=== PATIENT | male | born 1985 | race African-American/Black ===

== ENCOUNTER 2019-07-21 05:08 | Observation (INO) | payer SELFPAY ==
[2019-07-21] VITALS (9 sets, daily range): BP systolic 111–152; BP diastolic 70–95; PULSE 87–232; RESP 19–33; TEMP 36.7–37; O2SAT 87–100
--- NOTE | ~2019-07-21 | XR_ITS ---
XR chest 1V portable 07/21/2019 05:31 Indication: Chest pain and shortness of breath. Cocaine use. Procedure: AP portable chest Comparison: No prior studies for comparison. Findings: Heart size normal. Extensive bilateral airspace disease, most likely edema. Pneumonia less favored. No pleural effusion or pneumothorax. Impression: 1: Diffuse bilateral airspace disease, most likely pulmonary edema. Pneumonia less favored. Reviewed, dictated and finalized at location A. Impression: 1: Diffuse bilateral airspace disease, most likely pulmonary edema. Pneumonia l ess favored.
--- NOTE | 2019-07-21 05:10 | ECG_ITS ---
Measurements Intervals [place] Rate: 102 P: 63 [place]: 155 QRS: 55 QRSD: 97 T: 58 QT: 313 QTc: 409 Interpretive Statements SINUS TACHYCARDIA POSSIBLE LEFT ATRIAL ENLARGEMENT PEAKED T WAVES- CONSIDER HYPERKALEMIA OR ISCHEMIA BASELINE WANDER- I, II, III, AVR, AVL, AVF, V1 ABNORMAL ECG Electronically Signed On 07-21-2019 7:32:27 CDT by Paul Balderrama D.O.
--- NOTE | 2019-07-21 05:13 | PC.NURSE ---
EDP IN ROOM AT THIS TIME. PT GIVEN 6MG OF ADENOSINE AT THIS TIME.
--- NOTE | 2019-07-21 05:14 | PC.NURSE ---
NO CHANGE WITH 6MG OF ADENOSINE. EDP ORDERED 12MG OF ADENOSINE AT THIS TIME.
--- NOTE | 2019-07-21 05:18 | PC.NURSE ---
PT HEART RATE TO 124 BPM AFTER 12MG OF ADENOSINE.
--- NOTE | 2019-07-21 05:20 | PC.NURSE ---
UNABLE TO GET BLOOD PRESSURE ON PATIENT DUE TO HIM BEING UNCOOPERATIVE. PT PLACED ON 15 L NON REBREATHER AT THIS TIME. PER EDP ORDERS.
[2019-07-21 05:22] LABS: Basophils Percent Auto 0.4 % (0.2-1.2); Eosinophils Percent Auto 0.5 % (0-4.4); Hematocrit 51.2 % (42.0-52.0); Immature Granulocyte Absolute 0.02 K/mm3 (0.00-0.031); Immature Granulocyte Percent A 0.2 % (0-0.5); Lymphocytes Percent Auto 21.1 % (18.3-44.2); Mean Corpuscular HGB Conc 35.2 g/dl (32-36); Mean Corpuscular Hemoglobin 34.4 pg (26-34); Mean Corpuscular Volume 97.7 fl (80-100); Mean Platelet Volume 8.4 fl (7.4-10.4); Monocytes Absolute Auto 0.3 K/mm3 (0.1-0.6); Monocytes Percent Auto 4.1 % (2.6-8.5); Neutrophils Percent Auto 73.7 % (45.5-73.1); Platelet Count Result 426 k/mm3 (150-375); Red Blood Count 5.24 M/mm3 (4.6-6.20); Red Cell Distribution Width 11.6 % (11.5-14.5); White Blood Count 8.1 K/mm3 (4.5-10.0)
[2019-07-21] MEDS: ADENOSINE IV SOLN 6 MG/2 ML VIAL 12 MG IV PUSH (05:22)
[2019-07-21] MEDS: ADENOSINE IV SOLN 6 MG/2 ML VIAL IV PUSH (05:22)
--- NOTE | 2019-07-21 05:25 | ECG_ITS ---
Measurements Intervals [place] Rate: 232 P: MD: 0 QRS: 58 QRSD: 210 T: -52 QT: 287 QTc: 565 Interpretive Statements SUPRAVENTRICULAR TACHYCARDIA CANNOT RULE OUT SEPTAL INFARCT, AGE INDETERMINATE ST-T WAVE ABNORMALITY IN DIFFUSE LEADS- CONSIDER ISCHEMIA OR RATE RELATED BASELINE WANDER- I, II, AVL, V1-V3 ABNORMAL ECG Electronically Signed On 07-21-2019 13:19:15 CDT by Paul Balderrama D.O.
[2019-07-21] MEDS: FUROSEMIDE INJ 40 MG/4 ML VIAL IV PUSH (05:27)
[2019-07-21 05:31] LABS: Prothrombin Time 12.6 Seconds (11.1-14.7)
--- NOTE | 2019-07-21 05:31 | PC.NURSE ---
PT PLACED ON BI-PAP AT THIS TIME.
[2019-07-21 05:32] LABS: Partial Thromboplastin Time 28.2 SECONDS (22.3-36.8)
[2019-07-21 05:34] LABS: Ethanol 110 mg/dL (<10)
[2019-07-21] MEDS: ONDANSETRON INJ 4 MG/2 ML VIAL IV PUSH (05:34)
--- NOTE | 2019-07-21 05:35 | ED.GENADULT ---
HPI - General Adult General Chief complaint: Unspecified Stated complaint: CP/ SOB/ COCAINE USE Source: RN notes reviewed History of Present Illness HPI narrative: Patient presents emergency department from home for cocaine ingestion. Patient states that this evening he used cocaine for the first time at approximately midnight. He states he was also drinking this evening states he began to have feelings of his heart racing and shortness of breath and called EMS. Patient presents with rapid heart rate in the 230s also with oxygen saturations in the 80s when on room air. Patient denies any fevers or chills chest pain abdominal pain or any other symptoms denies any other drug use this evening. 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 He states he was feeling fine earlier in the day. States he was at his girlfriend's house and was walking out of his car when he began to feel the shortness of breath and heart racing. Related Data Allergies Allergy/AdvReac Type Severity Reaction Status Date / Time No Known Allergies Allergy Verified 07/21/19 05:40 Review of Systems Review of Systems: Narrative: Gen.: Denies fevers or chills ENT: Denies congestion Respiratory: Reports shortness of breath CV: See HPI GI: Denies abdominal pain nausea, emesis or diarrhea Musculoskeletal: Denies back pain or muscle pain Neuro: Denies numbness, tingling, weakness or focal weakness Skin: Denies rash Except as documented, all other systems reviewed and negative [facility] Past Medical History Medical History (Updated 07/21/19 @ 06:41 by Donny Boothe DO) Hypertension Social History Social History Gender identity (if verbalized by the patient): Male Exam Narrative: Exam Narrative: APPEARANCE: Moderate respiratory distress nontoxic, resting in bed EYES: EOMI HEENT: Normocephalic, atraumatic, OMM RESPIRATORY: Mild respiratory distress sitting upright speaking in short phrases crackles throughout the bilateral lung rios CARDIOVASCULAR: Tachycardic and regular without murmurs rubs or gallops. ABDOMINAL: Soft, nontender, nondistended, no rebound or guarding MUSCULOSKELETAl: Moves all extremities. No clubbing, cyanosis or edema. NEURO: Awake and alert x 3. Following commands, speech normal, no focal deficits SKIN:: Warm, dry. No rashes lesions or abrasions PSYCHIATRIC: Normal affect/mood, Course Course Emergency Course: Following cardioversion chest x-ray showing pulmonary edema patient was initially going to be placed on a BiPAP but had a episode of emesis Zofran was given and secondary to this we will hold on BiPAP and continue on nonrebreather which the patient is tolerating Patient's breathing is improved resting in bed able to speak in full sentences currently ANO x3 we will continue to wean oxygen as tolerated Discussed with Dr. Obrien presentation work-up. Agrees with consult at this time With Dr. Manriquez presentation and work-up. Agrees with admission to the ICU Discussed with ARLETH Ovalle for Dr. Taylor presentation work-up. Agrees with admission Discussed with patient and family results of workup and diagnosis. Discussed need for admission. Patient and family understand and agree to current treatment plan Patient will be weaned down to Ventimask from nonrebreather Vital Signs Vital signs: Vital Signs Temperature 98.6 F 07/21/19 05:04 Pulse Rate 232 H 07/21/19 05:04 Respiratory Rate 30 H 07/21/19 05:04 Pulse Oximetry 87 L 07/21/19 05:04 Temperature 98.2 F 07/21/19 06:54 Pulse Rate 97 07/21/19 06:54 Respiratory Rate 19 07/21/19 06:54 Blood Pressure 114/83 07/21/19 06:54 Pulse Oximetry 100 07/21/19 06:54 Procedures Other Procedure Procedure 1: Other Procedure: Chemical cardioversion: Patient was placed on nurse monitoring code cart was in room IV established and placed on oxy
--- NOTE | 2019-07-21 05:37 | PC.NURSE ---
pt unable to tolerate bi pap on this time. placed back on non rebreather.
[2019-07-21 05:38] LABS: Blood Urea Nitrogen 11 mg/dL (9-20); Carbon Dioxide 22 mmol/L (22-30); Chloride 107 mmol/L (98-107); Estimated Glomerular Filt Rate 58; Glucose 118 mg/dL (75-110); Potassium 3.8 mmol/L (3.4-5.0); Sodium 140 mmol/L (137-145)
[2019-07-21 05:48] LABS: Alveolar/Arterial O2 Gradient 536.1 mmHg; Base Excess ABG -5.7 mEq/l (+/-2.0); Fractional Inspired Oxygen 100 %; HCO3 ABG 20.8 mEq/l (22.0-26.0); Oxygen Content ABG 24.4 %vol (16.0-22.0); Oxygen Saturation ABG 98.4 % (95.0-100.0); Oxyhemoglobin 95.2 % THb (90.0-100.0); PO2 ABG 132.9 mmHg (80.0-100.0); PO2 FiO2 Ratio Arterial Blood 1.33 %; Total Hemoglobin 18.1 g/dL (12.0-18.0); pH ABG 7.292 (7.350-7.450)
[2019-07-21 05:49] LABS: Device NON-REBREATHER MASK; Modified Allen's Test Pass; Site Drawn RIGHT RADIAL
[2019-07-21 05:50] LABS: NT Pro B Type Natriuretic Pept 29 PG/ML (5-100)
[2019-07-21 06:08] LABS: Magnesium 1.9 mg/dL (1.6-2.3)
[2019-07-21 06:19] LABS: Amphetamine Screen Urine Positive (Negative); Barbiturate Screen Urine Negative (Negative); Benzodiazepines Screen Urine Negative (Negative); Cannabinoid Screen Urine Negative (Negative); Cocaine Screen Urine Positive (Negative); Methadone Screen Urine Negative (Negative); Opiate Screen Urine Negative (Negative); Phencyclidine Screen Urine Negative (Negative)
--- NOTE | 2019-07-21 07:05 | PC.NURSE ---
This patient, Louie Cheung, was admitted to Intensive Care Unit-9. Patient/family oriented to hospital policies and general routines including ID bracelet, bed and alarms, visiting hours, pain management, procedures, bathroom and other care routines, personal items, smoking policy, room service/diet, and visiting hours. Valuables list has been completed. Information on how to activate the Rapid Response Team has been discussed. Patient/Family are encouraged to report perceived risks to care and to ask questions if they do not understand what they are told or what they should do.
--- NOTE | 2019-07-21 08:29 | WPDCNINT ---
Assessment and Plan Assessment and plan (1) SVT (supraventricular tachycardia): Code(s): I47.1 - Supraventricular tachycardia Status: Acute Assessment and Plan: Secondary to cocaine use. Converted with adenosine in the ER EKG reviewed Monitor on telemetry in ICU today Cardiology consulted (2) Cocaine abuse: Code(s): F14.10 - Cocaine abuse, uncomplicated Status: Acute Assessment and Plan: See above Hold beta-blockers for now Serial troponin (3) Acute respiratory failure with hypoxia: Code(s): J96.01 - Acute respiratory failure with hypoxia Status: Acute Assessment and Plan: Secondary to pulmonary edema from SVT Improved with Lasix as patient is now on 15 L nasal cannula Continue to diurese (4) Pulmonary edema: Code(s): J81.1 - Chronic pulmonary edema Status: Acute Assessment and Plan: Lasix given in the ED. I will repeat another dose this afternoon Check BMP Check echocardiogram (5) Hypertension: Code(s): I10 - Essential (primary) hypertension Status: Acute Assessment and Plan: P.r.n. hydralazine (6) Alcohol intoxication: Code(s): F10.929 - Alcohol use, unspecified with intoxication, unspecified Status: Acute Assessment and Plan: Patient states that he only uses alcohol on weekends. Received Valium in the ED Monitor for signs of withdrawal (7) Abdominal pain: Code(s): R10.9 - Unspecified abdominal pain Status: Acute Assessment and Plan: Check LFTs and lipase Check CT abdomen pelvis without contrast (8) Nausea & vomiting: Code(s): R11.2 - Nausea with vomiting, unspecified Status: Acute Assessment and Plan: P.r.n. Zofran (9) Chest pain: Code(s): R07.9 - Chest pain, unspecified Status: Acute Assessment and Plan: Appears to be pleuritic in nature at this time Serial troponin to continue. First 1 was negative. Patient did receive aspirin ECHO is ordered EKG reviewed Cardiology consulted (10) Elevated serum creatinine: Code(s): R79.89 - Other specified abnormal findings of blood chemistry Status: Acute Assessment and Plan: Not sure what space and baseline is. 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 In the ED patient was found to be in SVT and was converted with adenosine. Chest x-ray showed pulmonary edema and patient was given Lasix. Patient was also given Valium and admitted to ICU for further evaluation management. This morning patient is little drowsy reluctant to give any history but told me that last night while he was working he was offered cocaine by a friend and he used cocaine for the 1st time later he was driving his car and he felt pain in his chest with his heart racing fast and shortness of breath. The symptoms continued until he reached ER. He himself does not remember who called EMS. And is unable to provide any detailed information about his symptoms or situation. He does admit to drinking alcohol but denies any other drug use or smoking. He states he drinks alcohol on weekends only. At this time patient complaining abdominal pain 5/10 in his lower abdomen, no radiation, no relieving or aggravating factors, denies any nausea vomiting at this time although he did had episode of vomiting in the ED. He told me he has diarrhea although he has not had bowel movement here in the hospital. Review system also positive chest pain on deep breathing and coughing in left anterior chest. He denies any fever, sick contact, travel or co
[2019-07-21 08:46] LABS: Troponin I 0.961 ng/mL (0.000-0.034)
--- NOTE | 2019-07-21 09:10 | PM.EVENT ---
Event Note Event Note Event Note: Patient was notified by his family by phone that his brother was shot last night and patient wants to leave against medical advice. I have explained the patient's his current condition results of his labs and out treatment plan including checking echocardiogram and CT abdomen pelvis. Patient does not want to stay and understands the risks leaving at this time which include worsening of his condition which could even lead to . He verbalized understanding and still wants to leave against medical advice. Patient showed me that he will seek medical care as an outpatient as soon as possible.
[2019-07-21 09:50] LABS: Alanine Aminotransferase 25 U/L (4-50); Albumin Level 4.4 g/dL (3.5-5.1); Alkaline Phosphatase 79 U/L (38-126); Aspartate Amino Transferase 40 U/L (17-59); Bilirubin,Total 0.4 mg/dL (0.2-1.3); Blood Urea Nitrogen 12 mg/dL (9-20); Calcium 8.8 mg/dL (8.4-10.2); Carbon Dioxide 22 mmol/L (22-30); Chloride 106 mmol/L (98-107); Creatine Kinase 443 U/L (55-170); Estimated Glomerular Filt Rate > 60; Glucose 116 mg/dL (75-110); Lipase 26 U/L (23-300); Potassium 3.6 mmol/L (3.4-5.0); Sodium 141 mmol/L (137-145)
--- NOTE | 2019-07-21 10:34 | PC.NURSE ---
Patient arrived to floor with ER staff at 0705. Patient awake, but drowsy. Answering questions appropriately, oriented to self, year, president. Patient not oriented to location. Patient on venti mask at 15L. At approximately 0745, Dr. Manriquez assessed patient, who was more alert at that time. Answered all questions appropriately, and knew he was in the hospital. Stated he had never heard of [place]. Patient oxygen saturation 100% on venti mask, changed to 4 L nc Patient spoke with family at 0800, and was advised that a family member had been killed overnight. Patient advised that he needed to go home. Dr. Manriquez advised. Risks discussed with patient, and he acknowledged understanding of risks of leaving AMA. Patient signed AMA paperwork at 0830, and left ICU at 0915. Prior to leaving, patient was advised of elevated troponin values, IV and noble catheter had been removed without complication.
--- NOTE | 2019-08-09 17:28 | PM.PNCARD ---
Progress Note: A&P Additional Plan Prior to my seeing pt he left against medical advice. Subjective Date/time seen: 08/09/19 17:28 Pt not seen prior to his decision to leave against medical advice. Objective Data Meds/Results Radiology Results: ITS Impressions Chest X-Ray 07/21/19 08:04 Impression: 1: Diffuse bilateral airspace disease, most likely pulmonary edema. Pneumonia less favored. Quality VTE Prophylaxis VTE prophylaxis: mechanical ordered
== END 2019-07-21 09:15 | disposition left against medical advice (07) ==
LOC: ANHED 06:41 → ANHICU 06:51
PROVIDERS: Internal Medicine; Admitting Provider Internal Medicine; Emergency Provider Emergency Medicine; Visit Provider Internal Medicine
DX: I47.1 Supraventricular tachycardia (principal); F14.10 Cocaine abuse, uncomplicated; J96.01 Acute respiratory failure with hypoxia; J81.1 Chronic pulmonary edema; I10 Essential (primary) hypertension; F10.929 Alcohol use, unspecified with intoxication, unspecified; R10.30 Lower abdominal pain, unspecified; R11.2 Nausea with vomiting, unspecified; R07.9 Chest pain, unspecified; R79.89 Other specified abnormal findings of blood chemistry; Z63.8 Other specified problems related to primary support group
CPT/HCPCS: 36415; 36600; 71045; 80048; 80076; 80307; 82550; 82805; 83690; 83735; 83880; 84484; 85025; 85610; 85730; 93005; 96374; 96375; 99285; A9270; G0378; G0379; J0153; J1940; J2405; J3360; J7030